=== PATIENT | male | born 1970 | race Caucasian/White ===

== ENCOUNTER 2021-09-29 21:02 | Emergency (ER) | payer OTHER ==
[~2021-09-29] VITALS: Ht 188 cm; Wt 152.0 kg
[~2021-09-29 21:02] MED LIST: AMARYL2 MG; GLUCOPHAGE500 MG; MACROBID 100 M100 M1 PO; NOHOMEMEDICATIONS; SERTRALINE HCL100 MG
[2021-09-29 21:27] VITALS: BP 124/70
[2021-09-29] MEDS ORDERED: RYBELSUS3 MG (21:31)
[2021-09-29] MEDS ORDERED: JARDIANCE10 MG PO (21:31)
[2021-09-29] MEDS ORDERED: CARDIZEM CD240 M1 PO (21:31)
[2021-09-29] MEDS ORDERED: ELIQUIS5 MG PO (21:31)
[2021-09-29] MEDS ORDERED: TOPROL XL25 MG PO (21:31)
== END 2021-09-29 22:35 | disposition home or self-care (01) ==
LOC: ER 21:02
PROVIDERS: Nurse Practitioner Family
DX: U07.1 COVID-19 (principal); J06.9 Acute upper respiratory infection, unspecified; E11.9 Type 2 diabetes mellitus without complications; Z79.84 Long term (current) use of oral hypoglycemic drugs; Z79.891 Long term (current) use of opiate analgesic; Z79.1 Long term (current) use of non-steroidal anti-inflammatories (NSAID)